=== PATIENT | female | born 1935 | race Caucasian/White ===

== ENCOUNTER 2021-10-09 17:48 | Observation (INO) | payer MEDICARE, OTHER ==
[~2021-10-09] VITALS: Ht 162.6 cm; Wt 66.9 kg
[2021-10-09 18:21] LABS: BASOPHILS # (AUTO) 0.1 (0.0-0.1); BASOPHILS % 0.8 % (0.0-1.0); EOSINOPHILS # (AUTO) 0.2 (0.0-0.4); HEMATOCRIT 37.9 % (34.2-44.1); LYMPHOCYTES # (AUTO) 1.9 (1.0-3.2); LYMPHOCYTES % 21.5 % (18.0-39.1); MEAN CORPUSCULAR HEMOGLOBIN 30.2 pg (28-32); MEAN CORPUSCULAR HGB CONC 31.7 g/dL (31-35); MEAN CORPUSCULAR VOLUME 95.2 fL (81-99); MONOCYTES # (AUTO) 0.7 (0.2-0.8); MONOCYTES % 7.9 % (4.4-11.3); NEUTROPHILS # (AUTO) 5.8 (2.1-6.9); NEUTROPHILS % 67.6 % (38.7-80.0); PLATELET COUNT 322 x10e3/uL (140-360); RED BLOOD COUNT 3.98 x10e6/uL (3.6-5.1); RED CELL DISTRIBUTION WIDTH 14.4 % (11.7-14.4)
[2021-10-09 18:32] LABS: LIPASE 22 U/L (8-78)
[2021-10-09 18:34] LABS: ALBUMIN 3.2 g/dL (3.5-5.0); ALBUMIN/GLOBULIN RATIO 1.1 (0.8-2.0); ANION GAP 13.8 mmol/L (8-16); CALCIUM 9.7 mg/dL (8.4-10.2); CREATININE, SERUM 0.89 mg/dL (0.57-1.11); POTASSIUM 3.8 mmol/L (3.5-5.1)
[2021-10-09] MEDS ORDERED: Morphine 2mg Syringe 2 MG/ML SYR IV PRN (20:00)
[2021-10-09] MEDS ORDERED: ONDANSETRON HCL INJ 2MG/ML 2ML 2 MG/ML VIAL IV PRN (20:00)
[2021-10-09] MEDS ORDERED: ASPIRIN 81 MG CHEW TAB PO ONE (20:00)
[2021-10-09 22:00] VITALS: BP 171/83
[2021-10-09] MEDS ORDERED: VITAMIN E400 UNI1 PO (23:22)
[2021-10-09] MEDS ORDERED: VITAMIN C1000 MG PO (23:22)
[2021-10-09] MEDS ORDERED: LISINOPRIL20 MG PO (23:22)
[2021-10-09] MEDS ORDERED: VITAMIN D310 MCG PO (23:22)
[2021-10-09] MEDS ORDERED: MULTI-VITAMIN1 EACH PO (23:22)
[2021-10-09] MEDS ORDERED: GARLIC1000 MG PO (23:22)
[2021-10-09] MEDS ORDERED: CORAL CALCIUM1 GM PO (23:22)
[2021-10-09] MEDS ORDERED: AMLODIPINE BESYL5 MG PO (23:22)
[2021-10-09] MEDS ORDERED: PROBIOTIC & AC1 EACH PO (23:22)
[2021-10-09 23:33] VITALS: BP 171/83
[2021-10-10] VITALS: BP 156/87
[2021-10-10] MEDS ORDERED: ACETAMINOPHEN 325 MG TAB PO PRN (00:30)
[2021-10-10 02:56] LABS: CREATINE KINASE 13 IU/L (29-168)
[2021-10-10 04:00] VITALS: BP 144/84
[2021-10-10 05:37] LABS: CHOL/HDL RATIO 3.3 (3.0-3.6)
[2021-10-10 05:46] LABS: BASOPHILS # (AUTO) 0.1 (0.0-0.1); BASOPHILS % 0.7 % (0.0-1.0); EOSINOPHILS # (AUTO) 0.2 (0.0-0.4); EOSINOPHILS % 2.8 % (0.0-6.0); HEMATOCRIT 36.4 % (34.2-44.1); HEMOGLOBIN 11.6 g/dL (12.0-16.0); LYMPHOCYTES # (AUTO) 2.1 (1.0-3.2); LYMPHOCYTES % 28.8 % (18.0-39.1); MEAN CORPUSCULAR HEMOGLOBIN 30.1 pg (28-32); MEAN CORPUSCULAR HGB CONC 31.9 g/dL (31-35); MEAN CORPUSCULAR VOLUME 94.3 fL (81-99); MONOCYTES # (AUTO) 0.8 (0.2-0.8); MONOCYTES % 10.5 % (4.4-11.3); NEUTROPHILS # (AUTO) 4.1 (2.1-6.9); NEUTROPHILS % 57.1 % (38.7-80.0); PLATELET COUNT 302 x10e3/uL (140-360); RED BLOOD COUNT 3.86 x10e6/uL (3.6-5.1); RED CELL DISTRIBUTION WIDTH 14.4 % (11.7-14.4)
[2021-10-10 05:53] LABS: ANION GAP 15.5 mmol/L (8-16); CALCIUM 8.9 mg/dL (8.4-10.2); CREATININE, SERUM 0.89 mg/dL (0.57-1.11); POTASSIUM 3.5 mmol/L (3.5-5.1)
[2021-10-10] MEDS ORDERED: FAMOTIDINE 20 MG TAB PO ONE (07:30)
[2021-10-10 08:12] VITALS: BP 139/101
[2021-10-10 08:35] VITALS: BP 139/101
[2021-10-10] MEDS ORDERED: LISINOPRIL 20 MG TAB PO SCH (09:00)
[2021-10-10] MEDS ORDERED: AMLODIPINE BESYLATE 5 MG TAB PO SCH (09:00)
[2021-10-10] MEDS ORDERED: PRAVASTATIN SOD20 MG PO (10:54)
[2021-10-10] MEDS ORDERED: ASPIRIN EC81 MG PO (10:54)
[2021-10-10] MEDS ORDERED: FAMOTIDINE20 MG PO (10:54)
[2021-10-10] MEDS ORDERED: FAMOTIDINE 20 MG TAB PO SCH (11:30)
[2021-10-10 12:12] VITALS: BP 132/87
[2021-10-10 12:59] LABS: CREATINE KINASE MB 0.7 ng/mL (0-5.0)
[2021-10-10] MEDS ORDERED: ENOXAPARIN SOD INJ 40 MG/0.4 ML SYR SC SCH (17:00)
== END 2021-10-10 14:50 | disposition home or self-care (01) ==
LOC: ER 17:55 → ERHOLD 20:02 → MED/SURG 22:04
PROVIDERS: ADMIT Internal Medicine; ATTEND Internal Medicine
DX: R07.89 Other chest pain (principal); R73.9 Hyperglycemia, unspecified; I10 Essential (primary) hypertension; E78.5 Hyperlipidemia, unspecified; R01.1 Cardiac murmur, unspecified; R10.11 Right upper quadrant pain; Z20.822 Contact with and (suspected) exposure to COVID-19
CPT/HCPCS: 36415 ×2; 71045; 80048; 80053; 80061; 82550; 82553; 83036; 83690; 83880; 84484 ×2; 85025 ×2; 93005; 94799 ×2; 99284; G0378 ×2; U0002